=== PATIENT | male | born 1945 | race Caucasian/White ===

== ENCOUNTER → 2023-07-09 06:22 | Day surgery (SDC) | payer MEDICARE, BC, SELFPAY | LOC: GI 06:22 | PROVIDERS: ATTENDING PHYSICIAN Internal Medicine Gastroenterology | DX: Z12.11 Encounter for screening for malignant neoplasm of colon (principal); D12.0 Benign neoplasm of cecum; D12.2 Benign neoplasm of ascending colon; D12.3 Benign neoplasm of transverse colon; K55.20 Angiodysplasia of colon without hemorrhage; K57.30 Diverticulosis of large intestine without perforation or abscess without bleeding; K64.0 First degree hemorrhoids; Z86.010 Personal history of colon polyps | CPT/HCPCS: 45385; 45380; 88305 ==

== ENCOUNTER → 2023-07-19 08:39 | Outpatient (REF) | payer MEDICARE, BC, SELFPAY ==
[2023-07-19 09:49] LABS: Blood Urea Nitrogen 19 mg/dl (9-20); Calcium 9.5 mg/dl (8.4-10.2); Carbon Dioxide 29 mmol/L (22-30); Chloride 103 mmol/L (98-107); Glucose 124 mg/dl (70-99); Potassium 3.8 mmol/L (3.5-5.1); Sodium 138 mmol/L (135-145); eGFR > 60.00
== END ==
LOC: REG 08:39
PROVIDERS: ATTENDING PHYSICIAN Internal Medicine; FAMILY PHYSICIAN Family Medicine
DX: R60.0 Localized edema (principal)
CPT/HCPCS: 36415; 80048

== ENCOUNTER → 2023-07-31 16:04 | Outpatient (REF) | payer MEDICARE, BC, SELFPAY | LOC: RCS 16:04 | PROVIDERS: ATTENDING PHYSICIAN Internal Medicine; FAMILY PHYSICIAN Family Medicine | DX: R60.9 Edema, unspecified (principal) | CPT/HCPCS: 93306 ==

== ENCOUNTER → 2023-09-09 09:34 | Outpatient (REF) | payer MEDICARE, BC, SELFPAY ==
[2023-09-09 10:40] LABS: Blood Urea Nitrogen 14 mg/dl (9-20); Calcium 9.4 mg/dl (8.4-10.2); Carbon Dioxide 24 mmol/L (22-30); Chloride 108 mmol/L (98-107); Glucose 136 mg/dl (70-99); Potassium 4.1 mmol/L (3.5-5.1); Sodium 141 mmol/L (135-145); eGFR > 60.00
[2023-09-09 12:36] LABS: Glycohemoglobin (HgbA1c) 6.1 % (4.0-5.6)
== END ==
LOC: REG 09:34
PROVIDERS: ATTENDING PHYSICIAN Internal Medicine; FAMILY PHYSICIAN Family Medicine
DX: I50.32 Chronic diastolic (congestive) heart failure (principal); E11.59 Type 2 diabetes mellitus with other circulatory complications
CPT/HCPCS: 36415; 80048; 83036

== ENCOUNTER → 2023-09-27 07:11 | Outpatient (REF) | payer MEDICARE, BC, SELFPAY ==
[2023-09-27 08:54] LABS: ALT (SGPT) 18 U/L (0-50); AST (SGOT) 27 U/L (17-59); Albumin 4.1 g/dl (3.5-5.0); Alkaline Phosphatase 74 U/L (38-126); Blood Urea Nitrogen 13 mg/dl (9-20); Calcium 9.3 mg/dl (8.4-10.2); Carbon Dioxide 29 mmol/L (22-30); Chloride 105 mmol/L (98-107); Glucose 121 mg/dl (70-99); HDL Cholesterol 63 mg/dl; LDL Cholesterol, Calculated 61 mg/dl; Potassium 4.2 mmol/L (3.5-5.1); Sodium 140 mmol/L (135-145); Total Bilirubin 0.6 mg/dl (0.2-1.3); Total Cholesterol 135 mg/dl (50-199); Total Protein 6.5 g/dl (6.3-8.2); Triglyceride 57 mg/dl (10-149); Very Low Density Lipoprotein 11 mg/dl (0-30); eGFR > 60.00
[2023-09-27 10:26] LABS: Glycohemoglobin (HgbA1c) 6.1 % (4.0-5.6)
== END ==
LOC: REG 07:11
PROVIDERS: ATTENDING PHYSICIAN Family Medicine; REFERRING PHYSICIAN Internal Medicine
DX: E11.59 Type 2 diabetes mellitus with other circulatory complications (principal); E78.5 Hyperlipidemia, unspecified
CPT/HCPCS: 36415; 80053; 80061; 83036

== ENCOUNTER → 2023-11-14 09:21 | Outpatient (REF) | payer MEDICARE, BC, SELFPAY | LOC: RAD 09:21 | PROVIDERS: ATTENDING PHYSICIAN Internal Medicine Critical Care Medicine | DX: Z87.891 Personal history of nicotine dependence (principal) | CPT/HCPCS: 71271 ==

== ENCOUNTER → 2024-01-21 07:13 | Outpatient (REF) | payer MEDICARE, BC, SELFPAY | LOC: RAD 07:13 | PROVIDERS: ATTENDING PHYSICIAN Internal Medicine Critical Care Medicine; FAMILY PHYSICIAN Family Medicine | DX: R91.1 Solitary pulmonary nodule (principal) | CPT/HCPCS: 71250 ==

== ENCOUNTER → 2024-03-30 09:15 | Outpatient (REF) | payer MEDICARE, BC, SELFPAY | LOC: RAD 09:15 | PROVIDERS: ATTENDING PHYSICIAN Otolaryngology; FAMILY PHYSICIAN Internal Medicine | DX: R13.12 Dysphagia, oropharyngeal phase (principal); K21.9 Gastro-esophageal reflux disease without esophagitis | CPT/HCPCS: 74210 ==

== ENCOUNTER → 2024-04-22 08:52 | Outpatient (REF) | payer MEDICARE, BC, SELFPAY ==
[2024-04-22 09:43] LABS: % Basophils 0.8 % (0-2); % Eosinophils 4.6 % (0-6); % Immature Granulocytes 0.3 % (0-0.5); % Lymphocytes 18.1 % (20.5-51.1); % Monocytes 9.1 % (1.7-9.3); % Neutrophils 67.1 % (42.2-75.2); Absolute Basophils 0.1 10^3/uL (0-0.2); Absolute Eosinophils 0.4 10^3/uL (0-0.7); Absolute Lymphocytes 1.4 10^3/uL (1.2-3.4); Absolute Monocytes 0.7 10^3/uL (0.1-0.6); Absolute Neutrophils 5.2 10^3/uL (1.4-6.5); Hematocrit 46.4 % (39.0-52.0); Hemoglobin 15.9 g/dL (13.0-18.0); Mean Corp Hgb Conc. 34.3 g/dL (33.0-37.0); Mean Corpuscular Hgb 31.8 pg (27.0-31.0); Mean Corpuscular Volume 92.8 fL (80.0-94.0); Mean Platelet Volume 9.4 fL (7.4-10.4); Nucleated Red Blood Cells % 0 % (-); Platelet Count 213 10^3/uL (130-400); Red Cell Dist. Width 12.2 % (11.5-14.5); White Blood Cell Count 7.7 10^3/uL (4.8-10.8)
[2024-04-22 10:05] LABS: Urine Albumin Negative (Neg - Trace); Urine Bilirubin Negative (Negative); Urine Character Clear (Clear); Urine Color Yellow; Urine Glucose 4+ (Negative); Urine Ketone 1+ (Negative); Urine Leukocyte Negative (Negative); Urine Nitrite Negative (Negative); Urine Occult Blood Negative (Negative); Urine Specific Gravity 1.015 (<1.030); Urine Urobilinogen Negative (Neg - 1+)
[2024-04-22 10:06] LABS: Glycohemoglobin (HgbA1c) 6.4 % (4.0-5.6)
[2024-04-22 11:17] LABS: ALT (SGPT) 23 U/L (0-50); AST (SGOT) 30 U/L (17-59); Albumin 4.7 g/dl (3.5-5.0); Alkaline Phosphatase 67 U/L (38-126); Blood Urea Nitrogen 13 mg/dl (9-20); Calcium 9.8 mg/dl (8.4-10.2); Carbon Dioxide 29 mmol/L (22-30); Chloride 102 mmol/L (98-107); Glucose 120 mg/dl (70-99); HDL Cholesterol 65 mg/dl; LDL Cholesterol, Calculated 70 mg/dl; Potassium 4.5 mmol/L (3.5-5.1); Sodium 138 mmol/L (135-145); Total Bilirubin 1.2 mg/dl (0.2-1.3); Total Cholesterol 153 mg/dl (50-199); Total Protein 7.1 g/dl (6.3-8.2); Triglyceride 90 mg/dl (10-149); Very Low Density Lipoprotein 18 mg/dl (0-30); eGFR > 60.00
[2024-04-22 14:41] LABS: TSH 1.38 uIU/ml (0.47-4.68)
== END ==
LOC: REG 08:52
PROVIDERS: ATTENDING PHYSICIAN Internal Medicine
DX: R73.01 Impaired fasting glucose (principal); I48.0 Paroxysmal atrial fibrillation; I50.32 Chronic diastolic (congestive) heart failure; E78.00 Pure hypercholesterolemia, unspecified; N40.1 Benign prostatic hyperplasia with lower urinary tract symptoms
CPT/HCPCS: 36415; 80053; 80061; 81003; 83036; 84443; 85025

== ENCOUNTER → 2024-05-27 08:06 | Outpatient (REF) | payer MEDICARE, BC, SELFPAY | LOC: MRI 3T 08:06 | PROVIDERS: ATTENDING PHYSICIAN Internal Medicine | DX: M54.12 Radiculopathy, cervical region (principal) | CPT/HCPCS: 72141 ==

== ENCOUNTER 2024-06-16 05:57 | Day surgery (SDC) | payer MEDICARE, BC, SELFPAY ==
[2024-06-02 12:37] VITALS: BMI 28.0
[2024-06-16] VITALS (12 sets, daily range): BP systolic 109–149; BP diastolic 65–99; BMI 27.8
[2024-06-16 06:51] LABS: Glucose - Point of Care 155 mg/dl (70-99)
[2024-06-16 09:25] LABS: ACT-LR - POC 306 Seconds (116-155)
[2024-06-16 10:11] LABS: ACT-LR - POC 343 Seconds (116-155)
[2024-06-16] MEDS: VENTOLIN NEBULES 2.5 MG INH (11:00)
--- NOTE | 2024-06-16 11:00 | ITS.CL.ABL ---
Clerical Manager - Ablation
Ablation
Procedure Report:
AFIB / A flutter ablation:
Mr. Sears is a very pleasant 78 yr old gentleman with medical history significant for symptomatic persistent atrial fibrillation and atrial flutter is here in the EP lab for atrial fibrillation / flutter ablation
Date of Procedure:
06/16/2024
Indications:
Symptomatic persistent atrial fibrillation / atrial flutter
Pre-Operative Diagnosis:
Persistent atrial fibrillation / atrial flutter
Post-Operative Diagnosis:
Persistent atrial fibrillation / atrial flutter
Procedure Performed:
Atrial fibrillation ablation with wide area circumferential ablation (WACA) approach for pulmonary vein isolation
Posterior wall isolation
Roof dependent atrial flutter ablation.
Atrial flutter ablation with cavo-tricuspid isthmus line block formation
Performing Physician:
Grzegorz White MD
Assistants:
EP staff
Anesthesia:
See anesthesia records
Detailed Description of the Procedure:
Written informed consent was obtained from the patient after a full explanation of the risks and benefits of the procedure including the risks of sedation and anesthesia.
The patient was brought to the electrophysiology laboratory in stable condition in fasting state. Continuous electrocardiographic and hemodynamic monitoring was initiated.
The initial rhythm was atrial flutter.
The procedure site was meticulously prepared with surgical scrub and allowed to dry with no pooling. Sterile draping was applied to cover the procedure site. The image intensifier was draped with sterile bag and positioned over the patient. After
infusion of local anesthetic, vascular access was obtained under ultrasound guidance and sheaths were placed over guide wire as detailed below.
The images of the ultrasound of the femoral vessels were stored in patient chart.
Sheath and Catheter Placement:
In the right femoral vein, an 10-Ecuadorean sheath was placed under ultrasound guidance for use during the ablation procedure. And mapping catheter was intermittently placed in the high right atrium, right ventricle, left atrium and left ventricle. In
the left femoral vein, a 9-Fr long sheath was placed for use during intracardiac echo procedure.
The sheaths were upgraded as needed during the case. Intracardiac catheters were positioned using direct fluoroscopic guidance.� ICE catheter was placed in RA. The following catheters / sheaths were placed
Sheaths:
��������� Agilis sheath in right femoral vein upgraded from 10Fr in right femoral vein
��������� 9Fr in left femoral vein
��������� 7Fr in right femoral vein
Catheters:
��������� The Affera Sphere 9 catheter -bidirectional D/F� - at locations of HRA, RV, LA and LV.
��������� ICE catheter -AccuNav -� at locations of RA, SVC, and RV.
��������� Bard decapolar catheter � RA and CS
Heparin was initiated after the access was obtained.
Intracardiac ECHO:
An 8-Ecuadorean AcuNav intracardiac ECHO (ICE) probe was advanced through the 9-Ecuadorean sheath in the left femoral vein into the right atrium under fluoroscopic and ICE ultrasound image guidance and a baseline ECHO study was performed. The left atrial
size was dilated. There was trace tricuspid regurgitation. The aortic valve was grossly normal. There was normal left ventricular size and function. There is a trace pericardial effusion. The CRIS has baseline low velocities. The pulmonary had good
flow identified.
During the procedure, ICE was used for monitoring of complications, guidance of trans-septal puncture, monitor the catheter position and tracking ablation lesions. No change in the pericardial space noted throughout the procedure.
Electroanatomic mapping of the right atrium:
A J-tipped guidewire was advanced through the 8-Ecuadorean sheath in the right femoral vein into the superior vena cava under fluoroscopic and ICE guidance. The 8-Ecuadorean sheath was exchanged for an Agilis sheath which was advanced into the superior vena
cava.
Using the Sphere 9 Affera catheter advanced through Agilis sheath into the right atrium, an electroanatomic map (EAM) of the right atrium was created using the [employer]� mapping system with [employer] software mapping system.
There was borderline long HV conduction noted at baseline at 48 ms.
Ablation # 1: Typical Atrial Flutter Ablation:
The flutter was mapped and was noted concentric in the CS. The RA was mapped in atrial flutter that showed clock linda CTI dependent atrial flutter. The entrainment was in the CTI by prox CS pacing and out from the distal CS.
The CTI ablation was done using radiofrequency with Affera sphere -9 ablation, open irrigation, force-sensing bidirectional ablation catheter in the cavotricuspid isthmus from the tricuspid annulus to the IVC ridge. �Once the ablation catheter reach
near the IVC, the ablation energy was changed to pulsefield.
The flutter terminated into sinus with ablation.
��������������� -Bidirectional block was confirmed across the CTI line with differential pacing.
��������������� -Double potentials were spaced greater than 112 msec apart.
��������������� -The conduction time across the CTI line from proximal CS pacing was 182 msec.
��������������� -EAM of the right atrium was obtained with coronary sinus pacing and showed a line of block at the CTI.
��������������� -The time interval just lateral to the ablation lesions was 182 msec and the lateral wall was 158 msec
��������������� - All these maneuvers confirmed the block at the CTI line.
- Post ablation HV interval was unchanged at 45msec
Then attention was given to atrial fibrillation ablation.
Trans-septal Puncture:
Heparin was initiated and infused to maintain appropriate ACT. A J-tipped guidewire was advanced through into the superior vena cava under fluoroscopic and ICE guidance. The Agilis sheath was advanced into the superior vena cava. The apparatus was
withdrawn until it was in contact with the fossa ovalis. The position was adjusted based on fluoroscopy and ultrasound images from ICE. Under fluoroscopic, hemodynamic and ICE ultrasound guidance, left atrium was cannulated by advancing the needle.
Once atrial septum was cannulated, the needle was pulled back and the guide wire was advanced through the needle into the left atrium. The guide wire was advanced into the left superior pulmonary vein. Both the sheath and the dilator was advanced
into the left atrium. The dilator with the needle was withdrawn. Blood was aspirated from the Agilis sheath and arterial blood confirmed. The sheath was flushed. Saline injection noted into the left atrium on ICE. The waveform of the LA pressure was
recorded. The mapping catheter was advanced in the Agilis sheath into the left pulmonary vein.
Of note, the atrial septum was quite thick and fibrous making the sheath delivery to the LA quite challenging.
3D Electroanatomic Mapping:
Using the Sphere 9 Affera catheter advanced through Agilis sheath into the left atrium, an electroanatomic map (EAM) of the left atrium was created using [employer]� mapping system with Prism-1 software. The map was used for localization of catheter
position and tacking of ablation lesions. The EAM of the left atrium showed a total of 4 PVs with two left and the two right sided pulmonary veins with all electrically connected to the body the LA. It showed scattered scar on the posterior wall of
the LA. The LA was severely dilated in size.
Following the EAM, preparation were made for ablation.
Ablation:
Ablation # 2: Pulmonary vein Isolation:
Pulsed field ablation was performed using an open irrigation, bidirectional, contact sensing, dual energy ablation catheter (Affera sphere -9) by completing the circumferential lesions around the left and right pulmonary veins achieving pulmonary
vein isolation.
Confirmation of the PVI and bidirectional block:
Following achievement of entrance block at the pulmonary veins, pacing from the Sphere 9 affera catheter in each of the four veins at 20 milliamps for 4 milliseconds showed entrance and exit block.
The LA was mapped with The [employer]� mapping system with Prism-1 software in sinus rhythm confirming the line of block at the ablation lesions lines.
Ablation # 3: Roof line Formation:
The LA ws mapped again in sinus rhythm post PVI and there was significant slowning and fractianted signals noted in the posterior wall. There was a clear channel of electrical activity left in the posterior wall with multiple CFAE and AF areas on
the roof and ablation in that area increased the risk of atrial flutter and decision was made to create a roof line to block a slow conduction. A set of pulsed field ablations were placed on the roof line connecting the left superior pulmonary vein
ablation lesions to the right superior pulmonary vein lesions rings.
Ablation # 3: Posterior wall isolation with the Box lesions set Formation:
There was a significant fractionation seen in the posterior wall and LA AF foci along with CFAE made it clear as the posterior wall is critical in maintaining the atrial fibrillation and the decision was made to isolate the posterior wall by
creating a �Box� lesions.
A set of Pulsed field ablations were placed on the floor line connecting the left inferior pulmonary vein ablation lesions to the right inferior pulmonary vein lesions rings.
The sphere 9 in the posterior wall showed entrance block and the pacing from the posterior wall showed no exit from the box lesions confirming the exit block.
EP study:
Sinus Node Function: The sinus node functions are within acceptable normal range.
Atrioventricular Martha Function: �Post ablation HV interval was unchanged at 45msec
Procedure End
ICE study was done again that showed no epicardial accumulation. No complications noted.
Following the completion of the EP study, catheters were removed. Protamine 40 mg was given at the end of the procedure and ACT was checked repeatedly. The sheaths were removed and hemostasis achieved with �Figure of 8� and manual compression after
acceptable ACT is achieved.
Left atrial Pressure:
Pre-Procedure: Mean LA pressure was 14mmHg
Post-Procedure: Mean LA pressure was 14mmHg
Post-Procedure: Mean RA pressure was 7mmHg
Fluoro Time:
1.7 min
Estimated Blood loss:
<10 cc
Specimens Removed:
None.
Implants / Devices:
None
Urine output:
None
Packs / Drains/ Tubes:
None
Instrument / Sponge Count Correct:
Yes
Complications of the Procedure:
None
Condition of Patient at Time of Transfer:
Hemodynamically stable with no neurological or vascular compromise.
Summary:
��������� Successful atrial fibrillation ablation with circumferential bidirectional line of block at pulmonary venin antra (Pulmonary vein isolation), atrial flutter ablation with cavo-tricuspid isthmus line block formation, roof flutter line
creation, Posterior wall isolation.
Figures from the Procedure:
[2024-06-16] MEDS: ANESTHETIC LOZENGE 1 LOZENGE PO (11:24)
[2024-06-16 12:14] LABS: ACT-LR - POC > 397 Seconds (116-155)
[2024-06-16] MEDS: TYLENOL 650 MG PO (12:40)
[2024-06-16] MEDS: LASIX 20 MG IV (15:36)
--- NOTE | 2024-06-16 17:01 | W.PN.UPDATE ---
Update Note
Progress Note Update
pt seen post PFA. Right groin site without ht/bleeding, oob ambulating, urinating without difficulty. Post EKG NSR 70s, no acute changes. Resume eliquis tonight. Continue other meds as before. Followup at [facility] as scheduled. Home today if groin
site/tele remain stable.
== END 2024-06-16 16:00 | disposition home or self-care (01) ==
LOC: CATH 05:57
PROVIDERS: ATTENDING PHYSICIAN Internal Medicine Cardiovascular Disease; FAMILY PHYSICIAN Internal Medicine; OTHER PHYSICIAN Internal Medicine
DX: I48.19 Other persistent atrial fibrillation (principal); I48.4 Atypical atrial flutter; Z79.01 Long term (current) use of anticoagulants; Z79.899 Other long term (current) drug therapy
CPT/HCPCS: C1766; C1733; C1769; C1894; C1730; C1892; C1759; 82962; 85347; 86900; 86901; 93005; 93655; 93656; 93657; 94640

== ENCOUNTER → 2024-10-30 09:19 | Outpatient (REF) | payer MEDICARE, BC, SELFPAY ==
[2024-10-30 12:51] LABS: TSH 1.23 uIU/ml (0.47-4.68)
== END ==
LOC: REG 09:19
PROVIDERS: ATTENDING PHYSICIAN Internal Medicine
DX: I48.0 Paroxysmal atrial fibrillation (principal)
CPT/HCPCS: 36415; 84443

== ENCOUNTER → 2024-11-17 09:55 | Outpatient (REF) | payer MEDICARE, BC, SELFPAY | LOC: RAD 09:55 | PROVIDERS: ATTENDING PHYSICIAN Internal Medicine | DX: R47.02 Dysphasia (principal); R13.10 Dysphagia, unspecified | CPT/HCPCS: 74230; 92611 ==